=== PATIENT | male | born 1970 | race Caucasian/White ===

== ENCOUNTER 2023-01-19 07:47 | Day surgery (SDC) | payer BC ==
[~2023-01-19] VITALS: Ht 172.7 cm; Wt 85.5 kg
[~2023-01-19 07:47] MED LIST: FLOMAX0.4 MG PO
--- NOTE | 2023-01-19 10:08 | NUR ---
PT UPDATED, PT RESTING IN BED AND HOB DECREASED SLIGHTLY PER REQUEST. PT CALL LIGHT IN REACH AND DENIES CONCERS.
--- NOTE | 2023-01-19 12:26 | NUR ---
01/19/23 1226 Nikki Lockwood 1117 PT ARRIVED IN PACU NON RESPONSIVE TO NOXIOUS STIMULI WITH OPA AND NPA IN PLACE. CHIN LIFT HELD BY RN. 1129 PT REACTIVE. OPA REMOVED. 1131 NPA REMOVED. C/O URGE TO VOID. URINAL IN PLACE WITH NO VOID. 1145 SIPPING ON WATER/JUICE. 1200 TO DS. UP TO BATHROOM WITH ONE PERSON ASSIST. INCONTINENT OF RED COLORED URINE ON FLOOR IN BATHROOM AND VOIDED 150ML IN URINAL. CHANGED GOWN AND SOCKS. 1215 PT SITTING ON TOILET. NOT READY TO DC HOME AT THIS TIME. REPORT GIVEN TO RN.
--- NOTE | 2023-01-19 12:50 | NUR ---
[id number] PT RETURNED TO ROOM 10 AND PT IN BATHROOM. REPORT FROM MACHINE PRECISION ETCHER. PT REPEORTS NEEDING "A LITTLE MORE TIME." PT REPORTS THE URGE TO VOID AND EDUCATION GIVEN. PT DRESSED HIMSELF AND DENIES CONCERN, ZHANNA PADS GIVEN AND PT PLACED IN HIS OWN UNDERWARE DUE TO SMALL AMOUNT OF DRAINAGE. PT CALLED HIS RIDE AND PAPERWORK GIVEN WITH RX. ALL QUESTIONS ANSWERED AND PT DENIES CONCERNS.
--- NOTE | 2023-01-20 16:09 | OR ---
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 PROCEDURES: 1. Diagnostic cystourethroscopy. 2. UroLift procedure. ANESTHESIA: MAC. ESTIMATED BLOOD LOSS: Minimal. COMPLICATIONS: None. SPECIMENS: None. DRAINS: None. INDICATIONS FOR PROCEDURE: Matteo is a very pleasant 52-year-old gentleman, who I know well. He has had a multiyear history of progressively worsening difficulties voiding, in particular urinary hesitancy with a weak force of stream. He is currently taking Flomax for his symptoms; however, the symptoms have progressed despite his Flomax medication. He recently underwent diagnostic cystoscopy, which revealed moderate lateral lobe hypertrophy with about 2 cm from bladder neck to verumontanum. There was no evidence of any median lobe. After discussion of the risks and benefits of the procedure, the patient has agreed to undergo the UroLift procedure today. FINDINGS: Electronically Signed By: GINNY SMALL MD 01/20/23 1609 PATIENT NAME: MATTEO SOUTH OPERATIVE REPORT DATE OF : 74 REPORT #: [id number] PHYSICIAN: GINNY SMALL MD PCP: NO PRIMARY CARE PHYSICIAN REPORT IS CONFIDENTIAL AND NOT TO BE RELEASED WITHOUT AUTHORIZATION [facility] [address], [place] [address] Signed 1. On cystoscopy, there was no evidence of any suspicious masses, lesions, or stones. Bilateral ureteral orifices are in their normal anatomic location, effluxing clear urine. He has mild grade 1-2 bladder wall trabeculation noted. 2. A total of four implants were placed today, two on the right and two on the left in a symmetrical fashion. The most proximal implant was placed about 1.5 cm distal to the bladder neck. The implants were evenly spaced. The more proximal ones were placed more anteriorly. At the end of the procedure, there was a more than adequate channel within the anterior urethra from the verumontanum to the bladder neck. DESCRIPTION OF PROCEDURE: After informed consent was obtained, the patient was taken back to the operating room. He was transferred from the [facility] to the operating room table, where MAC anesthesia was induced. The patient was correctly identified with a surgical pause. Details of procedure and laterality were confirmed. A 20-Latvian cystoscope was inserted into the urethral meatus, guided by a visual obturator. Inspection of the prostatic urethra was notable for the obstruction present as a result of the enlarged lateral lobes of the prostate. Visual obturator was replaced with UroLift 2 system delivery device. The first treatment site was the patient's left side approximately 1.5 cm distal to the bladder neck. The UroLift 2 system implantation steps were completed as indicated in the product documentation. The capsular tag was successfully deployed, the urethral end piece was successfully affixed to the suture, and the suture was cut. The delivery device was then readvanced into the bladder and then removed from the sheath and the patient. The implant cartridge was removed from the delivery device and replaced with the scope seal. The assembled device was then reinserted for evaluation of the implant placement. The implant location and opening affect was confirmed cystoscopically. The same steps of the procedure were performed on the contralateral side, approximately 1.5 cm from the bladder neck, followed by one additional implant just proximal to the verumontanum, one on the right and one on the left side of the prostate, using the indicated implantation technique. Intraprocedural cystoscopy was then performed, which revealed a wide-open and prostatic anterior urethra with a clear channel present from verumontanum to the bladder neck. The final cystoscopy also inspected the state of each implant and everything appeared to be in place as expected. Again, I was also able to confirm the presence of a continuous anterior channel from verumontanum to bladder neck through the prostatic urethra with the irrigation flow turned off. The bladder was then filled with approximately 100 mL of irrigation to assist the patient in voiding trial after the procedure, and all the instruments were removed. The procedure was then terminated. The patient tolerated the procedure well without any complication. He will now be transferred to the Postanesthesia Care Unit in stable condition. DISPOSITION: I discussed the details of today's procedure via voicemail with the patient's mother. The patient and I also had a clear discussion of the details of today's procedure Electronically Signed By: GINNY SMALL MD 01/20/23 1609 PATIENT NAME: MATTEO SOUTH OPERATIVE REPORT DATE OF : 74 REPORT #: [id number] PHYSICIAN: GINNY SMALL MD PCP: NO PRIMARY CARE PHYSICIAN REPORT IS CONFIDENTIAL AND NOT TO BE RELEASED WITHOUT AUTHORIZATION [address] [address] Signed preoperatively. He will be sent home today with Levaquin 500 mg one tablet p.o. daily for seven days, along with oxycodone 5 mg one tablet p.o. q.6 hours p.r.n. pain, dispense #5. He will also be given medication for potential dysuria, Pyridium 200 mg one tablet up to t.i.d. p.r.n. dysuria, dispense #21. He will be scheduled return to clinic in approximately two weeks with a PVR for his first postoperative evaluation. He is expected to void on his own prior to leaving Day Surgery today. MD LARISA Lawson/MIRYAML /[id number] Copies: ~ Electronically Signed By: GINNY SMALL MD 01/20/23 1609 PATIENT NAME: MATTEO SOUTH OPERATIVE REPORT DATE OF : 74 REPORT #: [id number] PHYSICIAN: GINNY SMALL MD PCP: NO PRIMARY CARE PHYSICIAN REPORT IS CONFIDENTIAL AND NOT TO BE RELEASED WITHOUT AUTHORIZATION
== END 2023-01-19 12:50 | disposition home or self-care (01) ==
LOC: DS 07:47
PROVIDERS: ATTEND Urology
PROC: 0T7D8DZ Dilation of Urethra with Intraluminal Device, Via Natural or Artificial Opening Endoscopic (ICD-10-PCS; principal; 2023-01-19 09:30)
DX: N40.1 Benign prostatic hyperplasia with lower urinary tract symptoms (principal); F17.200 Nicotine dependence, unspecified, uncomplicated; N39.43 Post-void dribbling
CPT/HCPCS: 00910; J0690; J1100; J1885; J2250; J2405; J2704; J2765; J3010; J3475; J7121